=== PATIENT | male | born 1955 | race Hispanic/Latino ===

== ENCOUNTER 2020-01-24 16:47 | Inpatient (IN) | payer MEDICARE ==
[~2020-01-24] VITALS: Ht 170.2 cm; Wt 98.6 kg
[2020-01-24] MEDS ORDERED: SODIUM CHLORIDE 0.9% 1000ML 1,000 ML IV STA (17:14)
[2020-01-24] MEDS ORDERED: ONDANSETRON HCL INJ 2MG/ML 2ML 2 MG/ML VIAL IV STA (17:14)
[2020-01-24] MEDS ORDERED: PANTOPRAZOLE 40 MG 10ML VIAL IV STA (17:14)
--- OUTSIDE RECORDS SUMMARY | 2020-01-24 17:27 | XMS REPORT | Continuity of Care Document ---
Author Author [facility] Organization [facility] Address [address] [place] [address] Phone Unavailable Care Team Providers Care Office Director Name Role Phone Unavailable Unavailable Problems This patient has no known problems. Allergies, Adverse Reactions, Alerts This patient has no known allergies or adverse reactions. Medications This patient has no known medications. Procedures This patient has no known procedures. Encounters Start Date/Time End Date/Time Encounter Type Admission Type Att[facility] [place] Care Department Encounter ID Source 2020-01-22 12:01:00 2020-01-22 12:01:00 Outpatient [id number] 2019-01-19 06:59:00 2019-01-19 06:59:00 Emergency E [id number] Results This patient has no known results.
[2020-01-24 17:44] LABS: BASOPHILS % 0.3 % (0.0-1.0); EOSINOPHILS # (AUTO) 0.1 (0.0-0.4); EOSINOPHILS % 0.8 % (0.0-6.0); HEMATOCRIT 44.1 % (38.2-49.6); HEMOGLOBIN 14.6 g/dL (14.0-18.0); LYMPHOCYTES # (AUTO) 1.9 (1.0-3.2); LYMPHOCYTES % 23.7 % (18.0-39.1); MEAN CORPUSCULAR HGB CONC 33.1 g/dL (31-35); MEAN CORPUSCULAR VOLUME 90.7 fL (81-99); MONOCYTES # (AUTO) 0.4 (0.2-0.8); MONOCYTES % 5.1 % (4.4-11.3); NEUTROPHILS # (AUTO) 5.5 (2.1-6.9); NEUTROPHILS % 69.7 % (38.7-80.0); PLATELET COUNT 334 x10e3/uL (140-360); RED BLOOD COUNT 4.86 x10e6/uL (4.3-5.7); RED CELL DISTRIBUTION WIDTH 12.6 % (11.7-14.4)
[2020-01-24 17:54] LABS: PARTIAL THROMBOPLASTIN TIME 30.3 seconds (23.8-35.5)
[2020-01-24 17:57] LABS: INR 0.96; PROTHROMBIN TIME 13.3 seconds (11.9-14.5)
[2020-01-24 18:00] LABS: ALBUMIN 4.4 g/dL (3.5-5.0); ALBUMIN/GLOBULIN RATIO 0.9 (0.8-2.0); ANION GAP 21.2 mmol/L (8-16); CALCIUM 8.9 mg/dL (8.4-10.2); CREATININE, SERUM 1.84 mg/dL (0.72-1.25); POTASSIUM 4.2 mmol/L (3.5-5.1)
[2020-01-24 18:00] LABS: AMORPHOUS SEDIMENT,URINE FEW (FEW); BACTERIA,URINE FEW /HPF; BILIRUBIN,URINE SMALL (NEGATIVE); CLARITY,URINE HAZY (CLEAR); COLOR,URINE YELLOW (YELLOW); EPITHELIAL CELLS,URINE FEW /LPF; KETONES,URINE NEGATIVE (NEGATIVE); LEUKOCYTE ESTERASE ,URINE NEGATIVE (NEGATIVE); NITRITE,URINE NEGATIVE (NEGATIVE); PROTEIN,URINE DIPSTICK >=300 (NEGATIVE); WBC,URINE (MAN) 0-5 /HPF (0-5)
[2020-01-24 18:06] LABS: CREATINE KINASE MB 0.6 ng/mL (0-5.0)
--- NOTE | 2020-01-24 18:11 | Diagnostic Imaging Report ---
EXAMINATION: CHEST SINGLE (PORTABLE) INDICATION: Nausea and fever COMPARISON: None FINDINGS: TUBES and LINES: None. LUNGS: Multifocal patchy airspace opacities particularly lung bases. PLEURA: No pleural effusion or pneumothorax. HEART AND MEDIASTINUM: The cardiomediastinal silhouette is within normal limits with atherosclerotic calcification of the thoracic aortic arch. BONES AND SOFT TISSUES: No acute osseous lesion. Soft tissues are unremarkable. UPPER ABDOMEN: No free air under the diaphragm. IMPRESSION: Patchy airspace opacities throughout both lungs compatible with multifocal pneumonia. Signed by: Saurav Martínez MD on 01/24/2020 6:08 PM
[2020-01-24 18:14] LABS: B-TYPE NATRIURETIC PEPTIDE2 < 10.0 pg/mL (0-100)
[2020-01-24] MEDS ORDERED: ACETAMINOPHEN 325 MG TAB PO ONE (18:30)
[2020-01-24] MEDS ORDERED: AZITHROMYCIN 500MG/NS 250 ML 250 ML IV STA (18:56)
--- OUTSIDE RECORDS SUMMARY | 2020-01-24 19:19 | XMS REPORT | Continuity of Care Document ---
Author Author [facility] Organization [facility] Address [address] [place] [address] Dr. Short[address] [place] [phone] Phone Unavailable Care Team Providers Care Operator [employer] Name Role Phone Tyler CEJA Attphys Unavailable Problems This patient has no known problems. Allergies, Adverse Reactions, Alerts This patient has no known allergies or adverse reactions. Medications This patient has no known medications. Procedures This patient has no known procedures. Encounters Start Date/Time End Date/Time [facility] ID Source 2020-01-22 12:01:00 2020-01-22 12:01:00 Outpatient [id number] 2019-01-19 06:59:00 2019-01-19 06:59:00 Emergency E [facility] [facility] Results Test Description Test Time Test Comments Results Result Comments Source CHEST SINGLE (PORTABLE) 2020-01-24 18:07:00 [place] [address] Patient Name: AVANI LOU MR #: [id number] : 1955 Age/Sex: 64/M Req #: [id number] Adm Physician: Ordered by: FAREED CEJA MD Report #: [id number] Location: ER Room/Bed: Procedure: [id number] DX/CHEST SINGLE (PORTABLE) Exam Date: 01/24/20 Exam Time: 1730 REPORT STATUS: Signed EXAMINATION: CHEST SINGLE (PORTABLE) INDICATION: Nausea and fever COMPARISON: None FINDINGS: TUBES and LINES: None. LUNGS: Multifocal patchy airspace opacities particularly lung bases. PLEURA: No pleural effusion or pneumothorax. HEART AND MEDIASTINUM: The cardiomediastinal silhouette is within normal limits with atherosclerotic calcification of the thoracic aortic arch. BONES AND SOFT TISSUES: No acute osseous lesion. Soft tissues are unremarkable. UPPER ABDOMEN: No free air under the diaphragm. IMPRESSION: Patchy airspace opacities throughout both lungs compatible with multifocal pneumonia. Signed by: Jeffrey Kingston MD on 01/24/2020 6:08 PM Dictated By: JEFFREY KINGSTON MD 07 Transcribed By: LASHAUN on 01/24/201807 COPY TO: FAREED CEJA MD
--- NOTE | 2020-01-24 19:25 | Emergency Department Note ---
History of Present Illnes History of Present Illness Chief Complaint: COVID PUI History of Present Illness This is a 64 year old male arrived to the ED with cough fever, n/v/d . Chief Complaint Comment PATIENT IN FROM HOME WITH COMPLAINTS OF NAUSEA AND LOSS OF APPETITE X 5 DAYS; PATIENT FOUND TO BE FEBRILE IN TRIAGE 101.4. PATIENT ALERT AND ORIENTED, RESP EVEN AND NONLABORED, APPEARS IN NO DSITRESS, DENIES PAIN Historian: Patient Arrival Mode: Car Severity: mild Onset quality: gradual Duration (how long): day(s) Timing of current episode: constant Progression: worsening Context: Reports recent illness Past Medical/Family History Physician Review I have reviewed the patient's past medical and family history. Any updates have been documented here. Past Medical History Recent Fever: Yes Clinical Suspicion of Infectio: Yes New/Unexplained Change in Ment: No Past Medical History: Hypertension, Diabetes Past Surgical History: None Social History Smoking Cessation: Former smoker Counseling Performed: Yes Alcohol Use: Social Any Illegal Drug Use: No Physically hurt or threatened: No Other Any Pre-Existing Lines (PICC,: No Review of Systems Review of Systems Constitutional: Reports as per HPI, Reports chills, Reports fever EENTM: Reports no symptoms Cardiovascular: Reports no symptoms Respiratory: Reports as per HPI, Reports cough Gastrointestinal: Reports no symptoms Genitourinary: Reports no symptoms Musculoskeletal: Reports no symptoms Integumentary: Reports no symptoms Neurological: Reports no symptoms Psychological: Reports no symptoms Endocrine: Reports no symptoms Hematological/Lymphatic: Reports no symptoms Physical Exam Related Data Allergies: Coded Allergies: No Known Allergies (Unverified , 01/24/20) Triage Vital Signs Vital Signs Date Time Temp Pulse Resp B/P (MAP) Pulse Ox O2 Delivery O2 Flow Rate FiO2 01/24/20 16:56 101.3 105 20 127/67 96 Room Air Vital signs reviewed: Yes Physical Exam CONSTITUTIONAL Constitutional: Present well-developed, Present well-nourished, Present ill appearing HENT HENT: Present normocephalic, Present atraumatic, Present oropharynx clear/moist, Present nose normal HENT L/R: Present left ext ear normal, Present right ext ear normal EYES Eyes: Reports PERRL, Reports conjunctivae normal NECK Neck: Present ROM normal PULMONARY Pulmonary: Present effort normal, Present breath sounds normal CARDIOVASCULAR Cardiovascular: Present regular rhythm, Present heart sounds normal, Present capillary refill normal, Present normal rate GASTROINTESTINAL Abdominal: Present soft, Present nontender, Present bowel sounds normal GENITOURINARY Genitourinary: Present exam deferred SKIN Skin: Present warm, Present dry MUSCULOSKELETAL Musculoskeletal: Present ROM normal NEUROLOGICAL Neurological: Present alert, Present oriented x 3, Present no gross motor or sensory deficits PSYCHOLOGICAL Psychological: Present mood/affect normal, Present judgement normal Results Laboratory Result Diagram: 01/24/20 1718 01/24/20 1718 Laboratory Laboratory Tests Test 01/24/20 17:27 01/24/20 17:18 Urine Color Yellow (YELLOW) Urine Clarity Hazy (CLEAR) Urine pH 6 (5 - 7) Urine Specific [place] 1.025 (1.010-1.025) Urine Protein >=300 (NEGATIVE) Urine Glucose (UA) Negative (NEGATIVE) Urine Ketones Negative (NEGATIVE) Urine Blood Moderate (NEGATIVE) Urine Nitrite Negative (NEGATIVE) Urine Bilirubin Small (NEGATIVE) Urine Urobilinogen 4.0 mg/dL (0.2 - 1) Urine Leukocyte Esterase Negative (NEGATIVE) Urine RBC 6-10 /HPF (0-5) Urine WBC 0-5 /HPF (0-5) Urine Epithelial Cells Few /LPF (NONE) Urine Amorphous Sediment Few (FEW) Urine Bacteria Few /HPF (NONE) Urine Coarse Granular Casts 1-5 (0) White Blood Count 7.89 x10e3/uL (4.8-10.8) Red Blood Count 4.86 x10e6/uL (4.3-5.7) Hemoglobin 14.6 g/dL (14.0-18.0) Hematocrit 44.1 % (38.2-49.6) Mean Corpuscular Volume 90.7 fL (81-99) Mean Corpuscular Hemoglobin 30.0 pg (28-32) Mean Corpuscular Hemoglobin Concent 33.1 g/dL (31-35) Red Cell Distribution Width 12.6 % (11.7-14.4) Platelet Count 334 x10e3/uL (140-360) Neutrophils (%) (Auto) 69.7 % (38.7-80.0) Lymphocytes (%) (Auto) 23.7 % (18.0-39.1) Monocytes (%) (Auto) 5.1 % (4.4-11.3) Eosinophils (%) (Auto) 0.8 % (0.0-6.0) Basophils (%) (Auto) 0.3 % (0.0-1.0) Neutrophils # (Auto) 5.5 (2.1-6.9) Lymphocytes # (Auto) 1.9 (1.0-3.2) Monocytes # (Auto) 0.4 (0.2-0.8) Eosinophils # (Auto) 0.1 (0.0-0.4) Basophils # (Auto) 0.0 (0.0-0.1) Absolute Immature Granulocyte (auto 0.03 x10e3/uL (0-0.1) Prothrombin Time 13.3 seconds (11.9-14.5) Prothromb Time International Ratio 0.96 Activated Partial Thromboplast Time 30.3 seconds (23.8-35.5) Sodium Level 137 mmol/L (136-145) Potassium Level 4.2 mmol/L (3.5-5.1) Chloride Level 99 mmol/L (98-107) Carbon Dioxide Level 21 mmol/L (22-29) Anion Gap 21.2 mmol/L (8-16) Blood Urea Nitrogen 19 mg/dL (7-26) Creatinine 1.84 mg/dL (0.72-1.25) Estimat Glomerular Filtration Rate 37 ML/MIN (60-) BUN/Creatinine Ratio 10 (6-25) Glucose Level 109 mg/dL (74-118) Lactic Acid Level 1.4 mmol/L (0.5-2.0) Calcium Level 8.9 mg/dL (8.4-10.2) Total Bilirubin 0.7 mg/dL (0.2-1.2) Aspartate Amino Transf (AST/SGOT) 54 IU/L (5-34) Alanine Aminotransferase (ALT/SGPT) 35 IU/L (0-55) Alkaline Phosphatase 36 IU/L (40-150) Creatine Kinase 131 IU/L (30-200) Creatine Kinase MB 0.60 ng/mL (0-5.0) Troponin I 0.007 ng/mL (0-0.300) B-Type Natriuretic Peptide < 10.0 pg/mL (0-100) Total Protein 9.1 g/dL (6.5-8.1) Albumin 4.4 g/dL (3.5-5.0) Globulin 4.7 g/dL (2.3-3.5) Albumin/Globulin Ratio 0.9 (0.8-2.0) Coronavirus (PCR) Detected (NOTDETECTED) Lab results reviewed: Yes Imaging Imaging results reviewed: Yes Assessment & Plan Medical Decision Making MDM Emergency room emergency 64-year-old male arrived to the ED with fever chills nausea vomiting-symptoms consistent with COVID-19 19 infection. Patient admitted the hospital for observation. Assessment & Plan Final Impression: (1) Pneumonia due to COVID-19 virus Depart Disposition: ADMITTED Last Vital Signs Date Time Temp Pulse Resp B/P (MAP) Pulse Ox O2 Delivery O2 Flow Rate FiO2 01/24/20 18:57 97 24 120/83 96 Room Air 01/24/20 16:56 101.3 Home Meds Active Scripts Amoxicillin/Potassium Clav (AUGMENTIN 875-125 TABLET) 1 Each Tablet, 1 EACH PO BID for 10 Days, #20 Prov:LUAN HAILE MD 01/26/20 Reported Medications Ondansetron Hcl (ONDANSETRON HCL) 4 Mg Tablet, 4 MG PO Q6H PRN for NAUSEA AND VOMITING 01/24/20 Fenofibrate Nanocrystallized (Fenofibrate) 145 Mg Tablet, 145 MG PO DAILY 01/24/20 Glipizide (GLIPIZIDE ER) 2.5 Mg Tab.er.24, 2.5 MG PO DAILY 01/24/20 Atorvastatin Calcium (ATORVASTATIN CALCIUM) 10 Mg Tablet, 10 MG PO DAILY 01/24/20 Lisinopril (LISINOPRIL) 10 Mg Tablet, 10 MG PO DAILY 01/24/20 Discontinued Reported Medications Metformin Hcl (METFORMIN HCL) 500 Mg Tablet, 500 MG PO BID 01/24/20 Medications in the ED Pantoprazole Sodium 40 mg ONCE STAT IV Last administered on 01/24/20at 18:10; Admin Dose 40 MG; Start 01/24/20 at 17:14; Stop 01/24/20 at 17:20; Status DC Ondansetron HCl 4 mg ONCE STAT IV Last administered on 01/24/20at 18:10; Admin Dose 4 MG; Start 01/24/20 at 17:14; Stop 01/24/20 at 17:20; Status DC Sodium Chloride 1,000 ml @ 0 mls/hr Q0M STAT IV Last administered on 01/24/20at 18:10; Admin Dose 999 MLS/HR; Start 01/24/20 at 17:14; Stop 01/24/20 at 17:17; Status DC Acetaminophen 975 mg ONCE ONCE PO Last administered on 01/24/20at 18:35; Admin Dose 975 MG; Start 01/24/20 at 18:30; Stop 01/24/20 at 18:31; Status DC Azithromycin 250 ml @ 200 mls/hr NOW STAT IV ; Start 01/24/20 at 18:56; Stop 01/24/20 at 20:10 MANSI KIRBY, Jan 24, 2020 19:25
[2020-01-24] MEDS ORDERED: CEFTRIAXONE SOD 1 GM/NS 50 ML 50 ML IV ONE (19:30)
[2020-01-24 20:37] VITALS: BP 100/72
--- NOTE | 2020-01-24 20:51 | NUR ---
PT ARRIVED BY WHEELCHAIR TO ROOM 298. PT IS AAOX3, RR EVEN AND NON-LABORED, ON ROOM AIR. PT ABLE TO AMBULATE WITH STAND BY ASSIST TO HOSPITAL BED. PT ORIENTED TO HOSPITAL POLICY, POC, BED CONTROLS, CALL LIGHT, PHONE AND LIGHTS. PT VERBALIZED UNDERSTANDING. LEFT PT LAYING SEMI FOWLERS IN BED, BED IN LOW LOCKED POSITION, SIDE RAILS UPX2, CALL LIGHT AND PHONE WITHIN REACH.
[2020-01-24] MEDS ORDERED: METFORMIN HCL500 MG PO (20:52)
[2020-01-24] MEDS ORDERED: GLIPIZIDE ER2.5 MG PO (20:52)
[2020-01-24] MEDS ORDERED: FENOFIBRATE145 M1 PO (20:52)
[2020-01-24] MEDS ORDERED: LISINOPRIL10 MG PO (20:52)
[2020-01-24] MEDS ORDERED: ATORVASTATIN CA10 MG PO (20:52)
[2020-01-24] MEDS ORDERED: ONDANSETRON HCL4 MG PO (20:52)
[2020-01-24] MEDS ORDERED: ONDANSETRON HCL INJ 2MG/ML 2ML 2 MG/ML VIAL IV PRN (21:00)
[2020-01-24] MEDS ORDERED: SODIUM CHLORIDE FLUSH 10 ML SYR IV PRN (21:00)
--- NOTE | 2020-01-24 21:31 | NUR ---
SPOKE WITH MD Katie SULLIVAN CONCERNING CONSULTATION. NO NEW ORDERS RECEIVED.
--- NOTE | 2020-01-24 21:33 | NUR ---
CONSULTATION CALLED TO MD CAMPBELL. NO ANSWER LEFT MESSAGE, WAITING FOR CALLBACK.
[2020-01-24 21:44] VITALS: BP 100/72
[2020-01-24 21:46] VITALS: BP 100/72
[2020-01-24] MEDS ORDERED: ACETAMINOPHEN 325 MG TAB PO PRN (22:30)
--- NOTE | 2020-01-24 23:16 | NUR ---
History and physical History of present illness 64-year-old man with past medical history of diabetes, chronic renal insufficiency, was brought to the hospital due to loss of appetite, nausea and generalized weakness for about 6 days, he also reports fever and chills, he denies chest pain, shortness of breath, abdominal pain, dysuria or diarrhea. Admission vital signs temperature 101.4, COVID-19 PCR positive. Chest x-ray: Bilateral infiltrates suggestive of viral pneumonia. The patient was started on azithromycin, ceftriaxone, Decadron. Review of systems Constitutional: Reports generalized weakness, loss of appetite, fever and chills. HEENT: Denies headache, no ear pain, no nosebleed, no sore throat. Cardiovascular: Denies chest pain, PND, swelling of the legs, palpitations or blackout spells. Respiratory: Denies cough, hemoptysis or shortness of breath. Gastrointestinal: Denies nausea, vomiting, diarrhea, hematemesis or melena. Genitourinary: Denies hematuria, frequency or dysuria. Neurologic: Denies convulsive disorders, no focal weakness, no ataxia. Psych: Denies anxiety or depression Skin: No rash. Hematological system: Denies bleeding, no petechia. Musculoskeletal: No significant deformity or swelling of the joints. Allergy neurology call center assistant: Negative Physical exam Vital signs: 101/60, respirations 20, pulse 72, temperature 97.7, pulse ox 97% on room air. Constitutional: He is oriented to person, place, and time. He appears well-developed. HEENT: Head: Normocephalic and atraumatic. PERRLA. Cardiovascular: Regular rhythm, no murmurs, no rubs, no gallops. Pulmonary/Chest: Clear bilaterally, no rales, no rhonchi. Abdominal: Soft, nontender, bowel sounds positive and normal. No distention, no guarding, no rebound. Musculoskeletal: Normal range of motion. Extremities: No edema, no clubbing. Neurological: He is alert and oriented to person, place, and time. Skin: Skin is warm and dry. Psychiatric: He has a normal mood and affect. Laboratory BUN 19, creatinine 1.84, GFR 37, AST 54, alkaline phosphatase 36, urine RBC 6-10, COVID-19 PCR positive. Chest x-ray: Patchy airspace opacities throughout both lungs compatible with multifocal pneumonia. Assessment Multifocal pneumonia without hypoxia COVID-19 detected History of hypertension History of diabetes Plan Reconcile medications BP control Pain control Glycemic control Electrolyte control DVT/GI prophylaxis Antibiotics DVT/GI prophylaxis Pulmonology consult ID consult
[2020-01-24] MEDS ORDERED: DEXAMETHASONE SOD PHOS 10 MG/1 ML VIAL IV ONE (23:30)
[2020-01-25] VITALS (8 sets, daily range): BP systolic 109–141; BP diastolic 60–90
--- NOTE | 2020-01-25 00:23 | NUR ---
infectious disease consultation Patient seen and examined chart reviewed events noted patient was admitted was cough and fever his covid 19 was positive Chief Complaint Comment PATIENT IN FROM HOME WITH COMPLAINTS OF NAUSEA AND LOSS OF APPETITE X 5 DAYS; PATIENT FOUND TO BE FEBRILE IN TRIAGE 101.4. PATIENT ALERT AND ORIENTED, RESP EVEN AND NONLABORED, APPEARS IN NO DSITRESS, DENIES any shortness of breath patient was not short of breath at present time Patient is lying in bed comfortably Past medical history denies past surgical history denies allergies NKDA Social history there is no smoking or drug abuse Her alcohol Historian: Patient Arrival Mode: Car P Past Medical History Recent Fever: Yes Clinical Suspicion of Infectio: Yes New/Unexplained Change in Ment: No Past Medical History: Hypertension, Diabetes Past Surgical History: None Social History Smoking Cessation: Former smoker Counseling Performed: Yes Alcohol Use: Social Any Illegal Drug Use: his physical examination currently alert oriented on room air her vitals stable afebrile HEENT normocephalic neck supple chest few crackles heart S1-S2 abdomen soft muscle present extremities no edema skin no rash. Impression pneumonia community-acquired Pneumonia with covid 19 but patient is not hypoxemic Rocephin 1 g daily for 5 days azithromycin 5 mg daily for 3 days Lovenox 40 mg subcu every 12 hours we will observe patient for any hypoxemia there is is not a candidate for steroid at present time Is not a candidate for RMZV wE WILL FOLLOW THIS CLOSELY REASSESS IN THE MORNING
[2020-01-25 06:50] LABS: EOSINOPHILS % 0.2 % (0.0-6.0); HEMOGLOBIN 13.2 g/dL (14.0-18.0); LYMPHOCYTES # (AUTO) 0.9 (1.0-3.2); LYMPHOCYTES % 18.6 % (18.0-39.1); MEAN CORPUSCULAR HEMOGLOBIN 29.5 pg (28-32); MEAN CORPUSCULAR HGB CONC 32.2 g/dL (31-35); MEAN CORPUSCULAR VOLUME 91.5 fL (81-99); MONOCYTES # (AUTO) 0.2 (0.2-0.8); NEUTROPHILS # (AUTO) 3.9 (2.1-6.9); PLATELET COUNT 275 x10e3/uL (140-360); RED BLOOD COUNT 4.48 x10e6/uL (4.3-5.7); RED CELL DISTRIBUTION WIDTH 12.6 % (11.7-14.4)
[2020-01-25 07:30] LABS: ALBUMIN/GLOBULIN RATIO 1.1 (0.8-2.0); ANION GAP 14.8 mmol/L (8-16); CREATININE, SERUM 1.46 mg/dL (0.72-1.25); POTASSIUM 4.8 mmol/L (3.5-5.1)
[2020-01-25 07:37] LABS: FERRITIN 451.04 ng/mL (21.81-274.66)
--- NOTE | 2020-01-25 07:56 | Diagnostic Imaging Report ---
EXAMINATION: CHEST SINGLE (PORTABLE) INDICATION: Covid, short of breath COMPARISON: Prior day chest x-ray FINDINGS: TUBES and LINES: None. LUNGS: Normal lung volumes. Multifocal patchy haziness in the mid lower lungs, worst in the left lower lung. Prominent pulmonary vasculature. PLEURA: No pleural effusion or pneumothorax. HEART AND MEDIASTINUM: The cardiomediastinal silhouette is unremarkable. BONES AND SOFT TISSUES: No acute osseous lesion. Soft tissues are unremarkable. UPPER ABDOMEN: No free air under the diaphragm. IMPRESSION: Persistent findings of multifocal pneumonia. Pulmonary vascular congestion. Signed by: Sarwat Mederos DO on 01/25/2020 7:53 AM
[2020-01-25] MEDS ORDERED: ENOXAPARIN SOD INJ 40 MG/0.4 ML SYR SC SCH (09:00)
[2020-01-25] MEDS ORDERED: SODIUM CHLORIDE 0.45% 1,000 ML IV ONE (09:00)
--- NOTE | 2020-01-25 09:32 | Consultation ---
DATE OF CONSULTATION: Pulmonary Critical Care Consultation CHIEF COMPLAINT: Loss of appetite and abnormal chest x-ray. HISTORY OF PRESENT ILLNESS: The patient is a 64-year-old man. He has a history of diabetes. He also has some baseline renal insufficiency. He reports feeling ill for about 5-6 days. His chief complaint was loss of appetite. He denies any actual vomiting or diarrhea. He reports nausea. When he came to the emergency department, he was found to have a temperature of 101.4. He also had an abnormal chest x-ray suggestive of COVID-19. His COVID-19 serology was positive. The patient has no cough or respiratory problems. PAST MEDICAL HISTORY: 1. Diabetes. 2. Chronic renal insufficiency. 3. No prior gastrointestinal problems. 4. The patient specifically denies asthma or any respiratory problems. 5. The patient denies any prior heart problems. PAST SURGICAL HISTORY: The patient denies any prior surgeries. ALLERGIES: NO KNOWN DRUG ALLERGIES. FAMILY HISTORY: Noncontributory. REVIEW OF SYSTEMS: Fever and chills after arriving to the hospital. No headache. No neck pain. The patient denies cough or dyspnea. He has no chest pain. He did have nausea and loss of appetite. This has improved. He does not complain of any actual vomiting. There is no diarrhea. He has no leg swelling. PHYSICAL EXAMINATION: VITAL SIGNS: The patient is afebrile. The blood pressure is 111/60 and pulse is 72. HEENT: No facial swelling or erythema. LYMPHATIC: No submandibular, cervical, or supraclavicular adenopathy. CARDIAC: Regular rate and rhythm with normal S1, S2. LUNGS: Auscultation of lungs shows clear breath sounds bilaterally. There is no wheezing. ABDOMEN: Soft, nontender. There is no rebound or guarding. EXTREMITIES: No leg edema or calf tenderness. There is no cyanosis or clubbing. SKIN: No rashes. NEUROLOGICAL: No focal abnormalities. LABORATORY DATA: BUN to creatinine ratio is 21 to 1.46. The other electrolytes are within normal limits. The albumin is 4. The white blood cell count is 5 and hemoglobin is 13.2. The platelet count is 275. RADIOGRAPHIC DATA: Chest x-ray shows bilateral infiltrates suggestive of viral pneumonia. IMPRESSION: 1. Viral pneumonia and coronavirus disease-19 infection. 2. Dyspepsia and loss of appetite. 3. Acute on chronic renal insufficiency. 4. Diabetes. PLAN: 1. The patient should receive judicious use of IV fluids. 2. Antiemetics. 3. Restart p.o. feedings. 4. Pepcid. 5. Lovenox for DVT prophylaxis. 6. The patient does not require dexamethasone at this time because he is not requiring oxygen and does not have symptomatic pulmonary disease. 7. Likewise the patient is not a candidate for remdesivir at this time because he is not requiring oxygen. MD HALEIGH De/MODL /[id number]
[2020-01-25] MEDS: FAMOTIDINE 20 MG/2 ML VIAL IV SCH ×2 (09:44→16:36)
[2020-01-25] MEDS: ATORVASTATIN 10 MG TAB PO SCH (09:44)
--- NOTE | 2020-01-25 13:39 | NUR ---
Progress note Subjective The patient is awake, alert, oriented, feels better, no shortness of breath, no fever. Review of systems Constitutional: Reports generalized weakness, loss of appetite. HEENT: Denies headache, no ear pain, no nosebleed, no sore throat. Cardiovascular: Denies chest pain, PND, swelling of the legs, palpitations or blackout spells. Respiratory: Denies cough, hemoptysis or shortness of breath. Gastrointestinal: Denies nausea, vomiting, diarrhea, hematemesis or melena. Genitourinary: Denies hematuria, frequency or dysuria. Neurologic: Denies convulsive disorders, no focal weakness, no ataxia. Psych: Denies anxiety or depression Skin: No rash. Hematological system: Denies bleeding, no petechia. Musculoskeletal: No significant deformity or swelling of the joints. Allergy neurology assistant credit manager: Negative Physical exam Vital signs: Temperature 98.6, pulse 77, respirations 22, BP 136/90, pulse ox 98% on room air. Constitutional: He is oriented to person, place, and time. He appears well-developed. HEENT: Head: Normocephalic and atraumatic. PERRLA. Cardiovascular: Regular rhythm, no murmurs, no rubs, no gallops. Pulmonary/Chest: Clear bilaterally, no rales, no rhonchi. Abdominal: Soft, nontender, bowel sounds positive and normal. No distention, no guarding, no rebound. Musculoskeletal: Normal range of motion. Extremities: No edema, no clubbing. Neurological: He is alert and oriented to person, place, and time. Skin: Skin is warm and dry. Psychiatric: He has a normal mood and affect. Laboratory Hemoglobin 13.2, ferritin 451.04, POC glucose 152. Chest x-ray: Persistent findings of multifocal pneumonia. Pulmonary vascular congestion. Assessment 64-year-old man with past medical history of diabetes, chronic renal insufficiency, was brought to the hospital due to loss of appetite, nausea and generalized weakness for about 6 days, he also reports fever and chills, he denies chest pain, shortness of breath, abdominal pain, dysuria or diarrhea. Admission vital signs temperature 101.4, COVID-19 PCR positive. Chest x-ray: Bilateral infiltrates suggestive of viral pneumonia. Multifocal pneumonia without hypoxia COVID-19 detected Dyspepsia, loss of appetite Acute on chronic renal insufficiency History of hypertension History of diabetes 01/25/2020 Stable vital signs, no hypoxia. No leukocytosis. The patient is not a candidate for steroids or Remdesivir at this time. Can be discharged to home with augmenting for 7 days as per ID. Plan Continue home medications IV fluids IV antibiotics BP control Pain control Glycemic control Electrolyte control DVT/GI prophylaxis Antibiotics DVT/GI prophylaxis Continue serial x-rays Pulmonology consult noted ID consult noted
--- NOTE | 2020-01-25 19:52 | Progress Note ---
DATE: SUBJECTIVE: Mr. Banegas is feeling better. There is no new complaint. REVIEW OF SYSTEMS: HEENT: Negative. PULMONARY: Negative. CARDIAC: Negative. PHYSICAL EXAMINATION: GENERAL: He is currently alert and oriented. VITALS: Stable, currently afebrile. HEENT: He is not icteric. NECK: Supple. CHEST: Clear bilateral. HEART: S1-S2. ABDOMEN: Soft, bowel sounds present. EXTREMITIES: No edema. SKIN: No rash. IMPRESSION: 1. Pneumonia, bacteria. 2. COVID-19, the patient has been sick for 15 days. The patient is not hypoxemic. We will treat for nosocomial pneumonia. 3. Diabetes, can change to oral Augmentin to finish 7 days tomorrow. Discharge home tomorrow. MD LING Rubi/MODL /[id number]
[2020-01-25] MEDS ORDERED: CEFTRIAXONE SOD 1 GM/NS 50 ML 50 ML IV SCH (21:00)
[2020-01-25] MEDS ORDERED: AZITHROMYCIN 500MG/NS 250 ML 250 ML IV SCH (21:00)
[2020-01-26 00:35] VITALS: BP 118/73
[2020-01-26 04:00] VITALS: BP 111/72
[2020-01-26 06:58] LABS: BASOPHILS % 0.1 % (0.0-1.0); EOSINOPHILS % 0.1 % (0.0-6.0); HEMATOCRIT 38.4 % (38.2-49.6); HEMOGLOBIN 12.8 g/dL (14.0-18.0); LYMPHOCYTES # (AUTO) 1.6 (1.0-3.2); LYMPHOCYTES % 22.8 % (18.0-39.1); MEAN CORPUSCULAR HEMOGLOBIN 30.8 pg (28-32); MEAN CORPUSCULAR HGB CONC 33.3 g/dL (31-35); MEAN CORPUSCULAR VOLUME 92.3 fL (81-99); MONOCYTES # (AUTO) 0.4 (0.2-0.8); NEUTROPHILS # (AUTO) 4.8 (2.1-6.9); NEUTROPHILS % 70.6 % (38.7-80.0); PLATELET COUNT 277 x10e3/uL (140-360); RED BLOOD COUNT 4.16 x10e6/uL (4.3-5.7); RED CELL DISTRIBUTION WIDTH 12.3 % (11.7-14.4)
[2020-01-26 07:21] LABS: ALANINE AMINOTRANSFERASE 22 IU/L (0-55); ALBUMIN 3.7 g/dL (3.5-5.0); ALKALINE PHOSPHATASE 35 IU/L (40-150); ANION GAP 14.1 mmol/L (8-16); BLOOD UREA NITROGEN 20 mg/dL (7-26); BUN/CREATININE RATIO 17 (6-25); CALCIUM 8.2 mg/dL (8.4-10.2); CARBON DIOXIDE 23 mmol/L (22-29); CHLORIDE 104 mmol/L (98-107); EST GLOMERULAR FILTRATION RATE > 60 ML/MIN (60-); GLUCOSE 92 mg/dL (74-118); POTASSIUM 4.1 mmol/L (3.5-5.1); SODIUM 137 mmol/L (136-145)
[2020-01-26 08:10] VITALS: BP 134/73
[2020-01-26 08:35] VITALS: BP 110/60
--- NOTE | 2020-01-26 08:35 | NUR ---
PATIENT TRANSFERRED FROM MED SURG 3 TO OBS ROOM 176 PER WHEEL CHAIR. ALERT AND VERBALLY RESPONSIVE. DENIED PAIN AT THIS TIME. SITTING UP IN BED WATCHING TV. BED IN LOWER POSITION, CALL LIGHT AT REACH.
[2020-01-26 08:40] VITALS: BP 110/60
[2020-01-26] MEDS ORDERED: GLIPIZIDE 2.5 MG TABCR PO SCH (09:00)
[2020-01-26] MEDS ORDERED: FENOFIBRATE 145 MG TAB PO SCH (09:00)
[2020-01-26] MEDS: ATORVASTATIN 10 MG TAB PO SCH (09:09)
[2020-01-26] MEDS: FAMOTIDINE 20 MG/2 ML VIAL IV SCH (09:09)
[2020-01-26] MEDS ORDERED: AUGMENTIN 875-1 EACH PO (11:16)
[2020-01-26 11:28] VITALS: BP 111/70
--- NOTE | 2020-01-26 11:30 | NUR ---
IN TO SEE PATIENT. ORDER RECEIVED TO DISCHARGE PATIENT AFTER SEEN BY DR CAMPBELL AND PRESCRIPTION PROVIDED.
--- NOTE | 2020-01-26 15:50 | NUR ---
PATIENT SITTING AT THE BED SIDE WORKING ON HIS PHONE, NO COMPLAIN VOICED. CALL LIGHT AT REACH.
[2020-01-26] MEDS ORDERED: ENOXAPARIN SOD INJ 40 MG/0.4 ML SYR SC SCH (17:00)
--- NOTE | 2020-01-26 18:00 | NUR ---
PATIENT DISCHARGED HOME. DISCHARGE INSTRUCTIONS, PRESCRIPTION, AND FOLLOW UP GIVEN TO PATIENT, HE VERBALIZED UNDERSTANDING. IV TO RIGHT AC REMOVED WITH TIP INTACT. ALL PERSONAL ITEMS TAKEN WITH PATIENT. REFUSED WHEEL CHAIR, BUT WAS ACCOMPANIED BY HOSPITAL STAFF TO FRONT LOBBY IN STABLE CONDITION.
--- NOTE | 2020-01-26 23:48 | NUR ---
infectious disease progress note date of service isSeptember 2019 Patient seen and examined chart reviewed and discussed with medical team patient with no new complaints is feeling much better review of systems totally negative at present time he wants to go home is stable off oxygen. Mr. Banegas is feeling better. There is no new complaint. REVIEW OF SYSTEMS: HEENT: Negative. PULMONARY: Negative. CARDIAC: Negative. PHYSICAL EXAMINATION: GENERAL: He is currently alert and oriented. VITALS: Stable, currently afebrile. HEENT: He is not icteric. NECK: Supple. CHEST: Clear bilateral. HEART: S1-S2. ABDOMEN: Soft, bowel sounds present. EXTREMITIES: No edema. SKIN: No rash. IMPRESSION: 1. Pneumonia, bacteria. 2. COVID-19, the patient has been sick for 15 days. The patient is not hypoxemic. We will treat for nosocomial pneumonia. 3. Diabetes, can change to oral Augmentin to finish 5 days discharged home to see me in 2 weeks
== END 2020-01-26 18:23 | disposition home or self-care (01) | DRG 177 ==
LOC: ER 17:24 → ERHOLD 18:56 → MED/SURG3 20:51 → IMCU 01-26 08:00
PROVIDERS: ADMIT Internal Medicine; ATTEND Internal Medicine
PROC: 8E0ZXY6 Isolation (ICD-10-PCS; principal; 2020-01-24)
DX: U07.1 COVID-19 (principal); J12.9 Viral pneumonia, unspecified; J15.6 Pneumonia due to other Gram-negative bacteria; N17.9 Acute kidney failure, unspecified; E11.9 Type 2 diabetes mellitus without complications; R10.13 Epigastric pain; E11.22 Type 2 diabetes mellitus with diabetic chronic kidney disease; I12.9 Hypertensive chronic kidney disease with stage 1 through stage 4 chronic kidney disease, or unspecified chronic kidney disease; N18.9 Chronic kidney disease, unspecified
CPT/HCPCS: 36415; 71045; 80053; 81001; 82550; 82553; 82728; 82948; 83605; 83615; 83880; 84484; 85025; 85610; 85730; 86140; 87040; 87086; 93005; 99284; J0456; J0696; J1100; J1650; J2405; J7030; U0002